=== PATIENT | male | born 1975 | race Caucasian/White ===

== ENCOUNTER 2020-04-06 18:16 | Emergency (ER) | payer BC ==
[~2020-04-06] VITALS: Ht 177.8 cm; Wt 115.4 kg
[2020-04-06 18:24] VITALS: BP 155/101
[2020-04-06] MEDS ORDERED: SULF1TAB49 PO (19:42)
== END 2020-04-06 20:09 | disposition home or self-care (01) ==
LOC: ER 18:17
DX: J34.0 Abscess, furuncle and carbuncle of nose (principal); J34.89 Other specified disorders of nose and nasal sinuses; R23.8 Other skin changes; Z79.2 Long term (current) use of antibiotics
CPT/HCPCS: 99283